=== PATIENT | male | born 1990 | race American Indian/Alaskan Native ===

== ENCOUNTER 2017-06-08 07:13 | Emergency (ER) | payer SELFPAY ==
[2017-06-08 07:53] LABS: Basophils % (Auto) 0.3 % (0.0-1.8); Eosinophils % (Auto) 0.1 % (0.0-4.3); Lymphocytes # (Auto) 1.1 K/mm3 (1.2-5.4); Lymphocytes % (Auto) 8.1 % (13.4-35.0); Mean Corpuscular HGB Conc 33 % (32-34); Mean Corpuscular Hemoglobin 30 pg (28-32); Mean Corpuscular Volume 90 fl (84-94); Monocytes # (Auto) 1.3 K/mm3 (0.0-0.8); Monocytes % (Auto) 9.8 % (0.0-7.3); Platelet Count 261 K/mm3 (140-440); Red Blood Count 5.67 M/mm3 (3.65-5.03); Red Cell Distribution Width 13.8 % (13.2-15.2)
[2017-06-08] MEDS ORDERED: NACL 0.9% 1000 ML 1,000 ML IV ONE ×2 (08:05→09:43)
[2017-06-08] MEDS ORDERED: ZOFRAN IV ONE ×2 (08:05→09:43)
--- NOTE | 2017-06-08 08:18 | Emergency Department Report ---
ED General Adult HPI - General Chief complaint: Nausea/Vomiting/Diarrhea Stated complaint: FLU SX Time Seen by Provider: 06/08/17 08:05 Source: patient Mode of arrival: Ambulatory Limitations: No Limitations - History of Present Illness Initial comments: Patient states he is recently moved to [place]. He denies any sick contacts or unusual diet. He's been having diarrhea since Sunday. He has not seen any blood. He complains of occasional abdominal cramping which has resolved now. He does not report fever or chills. He has vomited and has some mild persistent nausea. His by mouth intake has been diminished over the last 24 hours. He states he's been having diarrhea as frequently as every hour. The patient denies any previous surgery or past medical history. He is not on any routine medications. He's been on no recent antibiotics. -: Gradual, days(s) Location: abdomen Radiation: non-radiation Quality: other Consistency: now resolved Improves with: none Worsens with: none Associated Symptoms: nausea/vomiting (and diarrhea) Treatments Prior to Arrival: none - Related Data Previous Rx's Medication Instructions Recorded Last Taken Type Diphenoxylate/Atropine [Lomotil] 1 tab PO Q8H PRN #7 tablet 06/08/17 Unknown Rx Lansoprazole [Prevacid] 15 mg PO BID #30 cap 06/08/17 Unknown Rx Ondansetron [Zofran Odt] 4 mg PO Q6H #7 tab.rapdis 06/08/17 Unknown Rx Allergies Allergy/AdvReac Type Severity Reaction Status Date / Time No Known Allergies Allergy Unverified 06/08/17 07:23 ED Review of Systems ROS: Stated complaint: FLU SX Other details as noted in HPI Constitutional: denies: chills, fever Eyes: denies: eye pain, eye discharge, vision change ENT: denies: ear pain, throat pain Respiratory: denies: cough, shortness of breath, wheezing Cardiovascular: denies: chest pain, palpitations Endocrine: no symptoms reported Gastrointestinal: as per HPI, nausea, vomiting, diarrhea Genitourinary: denies: urgency, dysuria Musculoskeletal: denies: back pain, joint swelling, arthralgia Skin: denies: rash, lesions Neurological: denies: headache, weakness, paresthesias Psychiatric: denies: anxiety, depression Hematological/Lymphatic: denies: easy bleeding, easy bruising ED Past Medical Hx - Past Medical History Previous Medical History?: No - Surgical History Hx Appendectomy: Yes - Social History Smoking Status: Current Some Day Smoker - Medications Home Medications: Home Medications Medication Instructions Recorded Confirmed Last Taken Type Diphenoxylate/Atropine [Lomotil] 1 tab PO Q8H PRN #7 tablet 06/08/17 Unknown Rx Lansoprazole [Prevacid] 15 mg PO BID #30 cap 06/08/17 Unknown Rx Ondansetron [Zofran Odt] 4 mg PO Q6H #7 tab.rapdis 06/08/17 Unknown Rx ED Physical Exam - General Limitations: No Limitations General appearance: alert, in no apparent distress - Head Head exam: Present: atraumatic, normocephalic - Eye Eye exam: Present: normal appearance. Absent: scleral icterus - ENT ENT exam: Present: mucous membranes moist - Neck Neck exam: Present: normal inspection. Absent: tenderness, meningismus - Respiratory Respiratory exam: Present: normal lung sounds bilaterally. Absent: respiratory distress - Cardiovascular Cardiovascular Exam: Present: regular rate, normal rhythm. Absent: systolic murmur, diastolic murmur, rubs, gallop - GI/Abdominal GI/Abdominal exam: Present: soft, normal bowel sounds. Absent: distended, tenderness, guarding, rebound, rigid, organomegaly, mass, bruit, pulsatile mass , hernia - Rectal Rectal exam: Present: deferred - Extremities Exam Extremities exam: Present: normal inspection - Back Exam Back exam: Present: normal inspection - Neurological Exam Neurological exam: Present: alert, oriented X3, CN II-XII intact. Absent: motor sensory deficit - Psychiatric Psychiatric exam: Present: normal affect, normal mood - Skin Skin exam: Present: warm, dry, intact, normal color. Absent: rash ED Course Vital Signs 06/08/17 06/08/17 06/08/17 07:23 07:34 07:45 Temperature 98.9 F Pulse Rate 105 H Respiratory 18 Rate Blood Pressure 132/75 130/83 O2 Sat by Pulse 99 100 98 Oximetry - Reevaluation(s) Reevaluation #1: Patient's hydration status improving. We'll give some more fluid. After completion he is appropriate for outpatient follow-up. 06/08/17 09:44 ED Medical Decision Making - Lab Data Result diagrams: 06/08/17 07:45 06/08/17 08:21 Laboratory Results - last 24 hr 06/08/17 06/08/17 07:45 08:21 WBC 13.1 H RBC 5.67 H Hgb 17.0 H Hct 51.0 H MCV 90 MCH 30 MCHC 33 RDW 13.8 Plt Count 261 Lymph % (Auto) 8.1 L [place] % (Auto) 9.8 H Eos % (Auto) 0.1 Baso % (Auto) 0.3 Lymph # 1.1 L [place] # 1.3 H Eos # 0.0 Baso # 0.0 Seg Neutrophils % 81.7 H Seg Neutrophils # 10.7 H Sodium 138 Potassium 4.6 Chloride 98.0 Carbon Dioxide 23 Anion Gap 22 BUN 17 Creatinine 1.3 Estimated GFR > 60 BUN/Creatinine Ratio 13 Glucose 120 H Calcium 9.6 Total Bilirubin 0.40 AST 14 ALT 19 Alkaline Phosphatase 76 Total Protein 7.6 Albumin 4.2 Albumin/Globulin Ratio 1.2 Critical care attestation.: If time is entered above; I have spent that time in minutes in the direct care of this critically ill patient, excluding procedure time. ED Disposition Clinical Impression: Volume depletion Diarrhea Qualifiers: Diarrhea type: unspecified type Qualified Code(s): R19.7 - Diarrhea, unspecified Disposition: DC-01 TO HOME OR SELFCARE Is pt being admited?: No Does the pt Need Aspirin: No Condition: Stable Instructions: Dehydration (ED), Acute Diarrhea (ED) Additional Instructions: Fluids and advance as tolerated. Follow-up at [facility] or your choice of primary care providers. Rx as directed return any acute change or problems. Prescriptions: Diphenoxylate/Atropine [Lomotil] 1 tab PO Q8H PRN #7 tablet PRN Reason: Diarrhea Lansoprazole [Prevacid] 15 mg PO BID #30 cap Ondansetron [Zofran Odt] 4 mg PO Q6H #7 tab.rapdis Referrals: PRIMARY CARE, [Primary Care Provider] - 3-5 Days [facility] [Provider Group] - 2-3 Days Time of Disposition: 09:48
[2017-06-08 08:50] LABS: Alanine Aminotransferase 19 units/L (7-56); Albumin 4.2 g/dL (3.9-5); BUN/Creatinine Ratio 13; Blood Urea Nitrogen 17 mg/dL (9-20); Calcium 9.6 mg/dL (8.4-10.2); Hemolysis Index 8
[2017-06-08] MEDS ORDERED: PEPCID IV ONE (09:44)
[2017-06-08 11:03] VITALS: BP 112/50
== END 2017-06-08 11:10 | disposition home or self-care (01) ==
LOC: ED 07:13
DX: E86.9 Volume depletion, unspecified (principal); Z90.49 Acquired absence of other specified parts of digestive tract; F17.200 Nicotine dependence, unspecified, uncomplicated
CPT/HCPCS: 36415; 80053; 85025; 96361; 96374; 96375; 96376; 99283; J2405; J7030

== ENCOUNTER 2019-07-19 22:57 | Emergency (ER) | payer SELFPAY ==
[2019-07-20 00:40] LABS: Basophils % (Auto) 0.2 % (0.0-1.8); Eosinophils # (Auto) 0.1 K/mm3 (0.0-0.4); Eosinophils % (Auto) 0.4 % (0.0-4.3); Hematocrit 48.2 % (35.5-45.6); Hemoglobin 16.7 gm/dl (11.8-15.2); Lymphocytes % (Auto) 14.4 % (13.4-35.0); Mean Corpuscular HGB Conc 35 % (32-34); Mean Corpuscular Volume 92 fl (84-94); Monocytes # (Auto) 1.1 K/mm3 (0.0-0.8); Monocytes % (Auto) 8.1 % (0.0-7.3); Platelet Count 319 K/mm3 (140-440); Red Blood Count 5.27 M/mm3 (3.65-5.03); Red Cell Distribution Width 13.8 % (13.2-15.2)
[2019-07-20 00:47] VITALS: BP 134/84
[2019-07-20] MEDS ORDERED: KETOROLAC 30 MG/1 ML INJ IV ONE (00:53)
[2019-07-20] MEDS ORDERED: ONDANSETRON 4 MG/2 ML INJ IV ONE ×2 (00:53→03:51)
[2019-07-20] MEDS ORDERED: SODIUM CHLORIDE 0.9% 1000 ML 1,000 ML IV ONE ×2 (00:53→02:49)
[2019-07-20 01:03] LABS: Alanine Aminotransferase 12 units/L (7-56); Albumin 5.3 g/dL (3.9-5); BUN/Creatinine Ratio 19; Blood Urea Nitrogen 26 mg/dL (9-20); Calcium 10.4 mg/dL (8.4-10.2); Hemolysis Index 5
[2019-07-20 01:04] LABS: INR 1.08 (0.87-1.13)
[2019-07-20 01:05] LABS: Partial Thromboplastin Time 28.2 Sec. (24.2-36.6)
--- NOTE | 2019-07-20 01:44 | XRay Report ---
CHEST 2 VIEWS 0117 INDICATION / CLINICAL INFORMATION: pleuritc right rib pain COMPARISON: None available. FINDINGS: SUPPORT DEVICES: None. HEART / MEDIASTINUM: No significant abnormality. LUNGS / PLEURA: Less than full degree of inspiration is seen. No pleural effusions are noted. No area s of consolidation are seen. No pneumothorax. ADDITIONAL FINDINGS: No significant additional findings. IMPRESSION: No significant acute abnormality Signer Name: Zander Causey MD Signed: 07/20/2019 1:40 AM Workstation Name: [id number]
[2019-07-20] MEDS ORDERED: cefTRIAXone/NS 1 GM/50 ML 1 GM/50 ML BAG IV ONE ×2 (02:00→02:49)
[2019-07-20] MEDS ORDERED: AZITHROMYCIN 250 MG TAB PO ONE ×2 (02:00→02:49)
[2019-07-20] MEDS ORDERED: FLUCONAZOLE 100 MG TAB PO ONE (02:01)
[2019-07-20 02:09] LABS: Color,Urine TNR (Yellow)
[2019-07-20 02:10] LABS: Bilirubin,Urine TNR (Negative); Blood,Urine TNR (Negative); PH,Urine TNR (5.0-7.0); Protein,Urine TNR mg/dL (Negative); Urobilinogen,Urine TNR mg/dL (<2.0)
--- NOTE | 2019-07-20 02:10 | Cat Scan Report ---
CT ABDOMEN AND PELVIS WITHOUT CONTRAST INDICATION: right side pain, urinary symptoms CONTRAST: Without IV COMPARISON: None available. All CT scans at this location are performed using CT dose reduction for ALARA by means of automated e xposure control. FINDINGS: Lung bases are clear. No pneumoperitoneum is seen. No significant abdominal wall herniation is noted. No free fluid is seen. No lymphadenopathy is noted. See no abnormalities of the liver, spl een, pancreas, gallbladder, bile ducts, adrenals, or kidneys. No urinary tract calculi or evidence of obstruction are seen. No evidence of bowel obstruction is noted. Appendix is not visualized. No foca l inflammatory changes are seen. IMPRESSION: No acute abnormalities are seen Signer Name: Zander Causey MD Signed: 07/20/2019 2:05 AM Workstation Name: [id number]
[2019-07-20 02:11] LABS: Ictotest,Urine TNR (Negative); RBC,Urine TNR /HPF (0.0-6.0); WBC,Urine TNR /HPF (0.0-6.0)
[2019-07-20 02:12] LABS: Amorphous Crystals,Urine TNR; Calcium Carbonate Crystals,Ur TNR; Calcium Oxalate Crystals,Urine TNR; Calcium Phosphate Crystals,Ur TNR; Cystine Crystals,Urine TNR; Renal Epithelial Cells,Urine TNR /LPF; Triple Phosphate Crystal,Urine TNR
[2019-07-20 02:13] LABS: Bacteria,Urine TNR /HPF (Negative); Broad Casts,Urine TNR /LPF; Epithelial Casts,Urine TNR /HPF; Fatty Casts,Urine TNR /LPF; Granular Casts,Urine TNR /LPF; Hyaline Casts,Urine TNR /LPF; Mucus,Urine TNR /HPF; Other Casts,Urine TNR /LPF; Other Crystals,Urine TNR; Red Blood Cell Casts,Urine TNR /LPF; Sperm,Urine TNR /HPF (NP); Trichomonas,Urine TNR /HPF; Tyrosine Crystal,Urine TNR; White Blood Cell Casts,Urine TNR /LPF
[2019-07-20 02:35] LABS: Bacteria,Urine 1+ /HPF (Negative); Bilirubin,Urine NEG (Negative); Blood,Urine LG (Negative); Color,Urine Yellow (Yellow); Mucus,Urine 2+ /HPF; Urobilinogen,Urine < 2.0 mg/dL (<2.0)
--- NOTE | 2019-07-20 02:35 | Emergency Department Report ---
ED Male HPI - General Chief complaint: Abdominal Pain Stated complaint: FLANK PAIN Time Seen by Provider: 07/20/19 00:36 Source: patient, EMS Mode of arrival: Wheelchair Limitations: No Limitations - History of Present Illness Initial comments: 28-year-old male presents to the hospital complaining of difficulty urinating x1 week. Patient states he feels like he has to go to the bathroom but only a small amount comes out at the time 4 days ago patient had clear urine output with specks of blood without any recurrent hematuria. Since this morning he has had right-sided lower pleuritic chest pain rated 10/10 in intensity. Pain is worse with inspiration but not worse with movement or palpation. He had one episode of nausea and vomiting this a.m. denies hematemesis, melena, hematochezia. Patient denies cough or fever. He denies penile discharge, penile pain, or testicular pain - Related Data Previous Rx's Medication Instructions Recorded Last Taken Type Diphenoxylate/Atropine [Lomotil] 1 tab PO Q8H PRN #7 tablet 06/08/17 Unknown Rx Lansoprazole [Prevacid] 15 mg PO BID #30 cap 06/08/17 Unknown Rx Ondansetron [Zofran Odt] 4 mg PO Q6H #7 tab.rapdis 06/08/17 Unknown Rx Ibuprofen [Motrin] 800 mg PO Q8HR PRN #20 tablet 07/20/19 Unknown Rx Ondansetron [Zofran Odt] 4 mg PO Q8HR PRN #20 tab.rapdis 07/20/19 Unknown Rx Sulfamethoxazole/Trimethoprim 1 each PO BID #10 tablet 07/20/19 Unknown Rx [Bactrim DS TAB] traMADoL [Ultram 50 MG tab] 50 mg PO Q6HR PRN #10 tablet 07/20/19 Unknown Rx Allergies Allergy/AdvReac Type Severity Reaction Status Date / Time No Known Allergies Allergy Verified 07/20/19 02:10 ED Review of Systems ROS: Stated complaint: FLANK PAIN Other details as noted in HPI Comment: All other systems reviewed and negative ED Past Medical Hx - Past Medical History Previous Medical History?: No - Surgical History Past Surgical History?: Yes Hx Appendectomy: Yes - Social History Smoking Status: Never Smoker - Medications Home Medications: Home Medications Medication Instructions Recorded Confirmed Last Taken Type Diphenoxylate/Atropine [Lomotil] 1 tab PO Q8H PRN #7 tablet 06/08/17 Unknown Rx Lansoprazole [Prevacid] 15 mg PO BID #30 cap 06/08/17 Unknown Rx Ondansetron [Zofran Odt] 4 mg PO Q6H #7 tab.rapdis 06/08/17 Unknown Rx Ibuprofen [Motrin] 800 mg PO Q8HR PRN #20 tablet 07/20/19 Unknown Rx Ondansetron [Zofran Odt] 4 mg PO Q8HR PRN #20 tab.rapdis 07/20/19 Unknown Rx Sulfamethoxazole/Trimethoprim 1 each PO BID #10 tablet 07/20/19 Unknown Rx [Bactrim DS TAB] traMADoL [Ultram 50 MG tab] 50 mg PO Q6HR PRN #10 tablet 07/20/19 Unknown Rx ED Physical Exam - General Limitations: No Limitations - Other Other exam information: General: No acute distress Head: Atraumatic Eyes: normal appearance ENT: Moist mucous membranes Neck: Normal appearance, no midline tenderness Chest: Clear to auscultation bilaterally, chest wall nontender CV: Regular rate and rhythm Abdomen: Soft, normal bowel sounds, nontender, nondistended, no rebound or guarding Back: Normal inspection Extremity: Normal inspection, full range of motion, no CVA tenderness or flank tenderness Neuro: Alert O x 3, no facial asymmetry, speech clear, no gross motor sensory deficit Psych: Appropriate behavior Skin: No rash ED Course Vital Signs 07/19/19 07/20/19 23:57 01:17 Temperature 98.3 F Pulse Rate 105 H Respiratory 18 16 Rate Blood Pressure 134/84 O2 Sat by Pulse 98 100 Oximetry ED Medical Decision Making - Lab Data Result diagrams: 07/20/19 00:18 07/20/19 00:18 Lab Results 07/20/19 07/20/19 07/20/19 Range/Units 00:15 00:18 00:18 WBC 13.7 H (4.5-11.0) K/mm3 RBC 5.27 H (3.65-5.03) M/mm3 Hgb 16.7 H (11.8-15.2) gm/dl Hct 48.2 H (35.5-45.6) % MCV 92 (84-94) fl MCH 32 (28-32) pg MCHC 35 H (32-34) % RDW 13.8 (13.2-15.2) % Plt Count 319 (140-440) K/mm3 Lymph % (Auto) 14.4 (13.4-35.0) % Bonner % (Auto) 8.1 H (0.0-7.3) % Eos % (Auto) 0.4 (0.0-4.3) % Baso % (Auto) 0.2 (0.0-1.8) % Lymph # 2.0 (1.2-5.4) K/mm3 Bonner # 1.1 H (0.0-0.8) K/mm3 Eos # 0.1 (0.0-0.4) K/mm3 Baso # 0.0 (0.0-0.1) K/mm3 Seg Neutrophils % 76.9 H (40.0-70.0) % Seg Neutrophils # 10.5 H (1.8-7.7) K/mm3 PT (12.2-14.9) Sec. INR (0.87-1.13) APTT (24.2-36.6) Sec. D-Dimer (0-234) ng/mlDDU Sodium 139 (137-145) mmol/L Potassium 4.5 (3.6-5.0) mmol/L Chloride 96.6 L (98-107) mmol/L Carbon Dioxide 18 L (22-30) mmol/L Anion Gap 29 mmol/L BUN 26 H (9-20) mg/dL Creatinine 1.4 (0.8-1.5) mg/dL Estimated GFR > 60 ml/min BUN/Creatinine Ratio 19 % Glucose 103 H (75-100) mg/dL Calcium 10.4 H (8.4-10.2) mg/dL Total Bilirubin 0.70 (0.1-1.2) mg/dL AST 15 (5-40) units/L ALT 12 (7-56) units/L Alkaline Phosphatase 117 (35-129) units/L Total Protein 9.5 H (6.3-8.2) g/dL Albumin 5.3 H (3.9-5) g/dL Albumin/Globulin Ratio 1.3 % Lipase 25 (13-60) units/L Urine Color TNR Urine Turbidity TNR Urine pH TNR Ur Specific [place] TNR Urine Protein TNR Urine Glucose (UA) TNR Urine Ketones TNR Urine Blood TNR Urine Nitrite TNR Ur Reducing Substances TNR Urine Bilirubin TNR Urine Ictotest TNR Urine Urobilinogen TNR Ur Leukocyte Esterase TNR Urine WBC (Auto) TNR Urine RBC (Auto) TNR U Epithel Cells (Auto) TNR Urine Bacteria (Auto) TNR Urine WBC Clumps TNR Ur Transition Epith Cell TNR Ur Renal Epithelial Cell TNR Calcium Carbonate Cryst TNR Calcium Phosphate Cryst TNR Calcium Oxalate Crystal TNR Cystine Crystals TNR Uric Acid Crystals TNR Triple Phos Crystals TNR Tyrosine Crystals TNR Other Crystals TNR Amorphous Crystals TNR Epithelial Casts TNR Fatty Casts TNR Hyaline Casts TNR Granular Casts TNR Waxy Casts TNR Broad Casts TNR RBC Casts TNR WBC Casts TNR Other Casts TNR Urine Mucus TNR Urine Trichomonas TNR Ur Yeast w Hyphae TNR Urine Yeast (Budding) TNR Urine Sperm TNR 07/20/19 07/20/19 07/20/19 Range/Units 00:39 Unknown Unknown WBC (4.5-11.0) K/mm3 RBC (3.65-5.03) M/mm3 Hgb (11.8-15.2) gm/dl Hct (35.5-45.6) % MCV (84-94) fl MCH (28-32) pg MCHC (32-34) % RDW (13.2-15.2) % Plt Count (140-440) K/mm3 Lymph % (Auto) (13.4-35.0) % Bonner % (Auto) (0.0-7.3) % Eos % (Auto) (0.0-4.3) % Baso % (Auto) (0.0-1.8) % Lymph # (1.2-5.4) K/mm3 Bonner # (0.0-0.8) K/mm3 Eos # (0.0-0.4) K/mm3 Baso # (0.0-0.1) K/mm3 Seg Neutrophils % (40.0-70.0) % Seg Neutrophils # (1.8-7.7) K/mm3 PT 14.1 (12.2-14.9) Sec. INR 1.08 (0.87-1.13) APTT 28.2 (24.2-36.6) Sec. D-Dimer 151.4 (0-234) ng/mlDDU Sodium (137-145) mmol/L Potassium (3.6-5.0) mmol/L Chloride (98-107) mmol/L Carbon Dioxide (22-30) mmol/L Anion Gap mmol/L BUN (9-20) mg/dL Creatinine (0.8-1.5) mg/dL Estimated GFR ml/min BUN/Creatinine Ratio % Glucose (75-100) mg/dL Calcium (8.4-10.2) mg/dL Total Bilirubin (0.1-1.2) mg/dL AST (5-40) units/L ALT (7-56) units/L Alkaline Phosphatase (35-129) units/L Total Protein (6.3-8.2) g/dL Albumin (3.9-5) g/dL Albumin/Globulin Ratio % Lipase (13-60) units/L Urine Color Yellow Urine Turbidity Cloudy Urine pH 5.0 Ur Specific [place] 1.019 Urine Protein 100 mg/dl Urine Glucose (UA) Neg Urine Ketones 80 Urine Blood Lg Urine Nitrite Neg Ur Reducing Substances Urine Bilirubin Neg Urine Ictotest Urine Urobilinogen < 2.0 Ur Leukocyte Esterase Lg Urine WBC (Auto) > 182.0 H Urine RBC (Auto) 82.0 U Epithel Cells (Auto) 6.0 Urine Bacteria (Auto) 1+ Urine WBC Clumps 2+ Ur Transition Epith Cell Ur Renal Epithelial Cell Calcium Carbonate Cryst Calcium Phosphate Cryst Calcium Oxalate Crystal Cystine Crystals Uric Acid Crystals Triple Phos Crystals Tyrosine Crystals Other Crystals Amorphous Crystals Epithelial Casts Fatty Casts Hyaline Casts Granular Casts Waxy Casts Broad Casts RBC Casts WBC Casts Other Casts Urine Mucus 2+ Urine Trichomonas Ur Yeast w Hyphae Urine Yeast (Budding) Urine Sperm gc/chl pending - Radiology Data Radiology results: report reviewed CT ABDOMEN AND PELVIS WITHOUT CONTRAST INDICATION: right side pain, urinary symptoms CONTRAST: Without IV COMPARISON: None available. All CT scans at this location are performed using CT dose reduction for ALARA by means of automated exposure control. FINDINGS: Lung bases are clear. No pneumoperitoneum is seen. No significant abdominal wall herniation is noted. No free fluid is seen. No lymphadenopathy is noted. See no abnormalities of the liver, spleen, pancreas, gallbladder, bile ducts, adrenals, or kidneys. No urinary tract calculi or evidence of obstruction are seen. No evidence of bowel obstruction is noted. Appendix is not visualized. No focal inflammatory changes are seen. IMPRESSION: No acute abnormalities are seen CHEST 2 VIEWS 0117 INDICATION / CLINICAL INFORMATION: pleuritc right rib pain COMPARISON: None available. FINDINGS: SUPPORT DEVICES: None. HEART / MEDIASTINUM: No significant abnormality. LUNGS / PLEURA: Less than full degree of inspiration is seen. No pleural effusions are noted. No areas of consolidat ion are seen. No pneumothorax. ADDITIONAL FINDINGS: No significant additional findings. IMPRESSION: No significant acute abnormality - Medical Decision Making pt feels better with ed tx of Toradol, Zofran 2 L of normal saline provided for dehydration Rocephin azithromycin provided for urethritis given positive urine findings for UTI Gonorrhea chlamydia pending Patient with reported pleuritic right-sided rib pain which may be due to infection of kidney. No CT evidence of pyelonephritis, no CVA tenderness, however, patient also has a negative chest x-ray and a negative d-dimer with a low pretest probability for PE Patient did develop additional nausea vomiting after p.o. meds and required additional Reglan, Benadryl, and Zofran for nausea - Differential Diagnosis PE, pleuritic chest pain, UTI, urethritis, renal colic, biliary colic Critical Care Time: No Critical care attestation.: If time is entered above; I have spent that time in minutes in the direct care of this critically ill patient, excluding procedure time. ED Disposition Clinical Impression: Urethritis, UTI (urinary tract infection), Pleuritic chest pain Disposition: TO HOME OR SELFCARE Is pt being admited?: No Does the pt Need Aspirin: No Condition: Stable Instructions: Pleurisy (ED), Nonspecific Urethritis in Men (ED), Urinary Tract Infection in Men (ED) Additional Instructions: Take the medication as prescribed. In your age group urethritis is likely secondary to gonorrhea chlamydia infection. You test is pending. Refer to your paperwork regarding how to obtain your results. Your sexual partners will also need treatment for possible gonorrhea and chlamydia if cultures are positive. Follow-up your doctor or doctor/clinic provided. Return if symptoms worsen as indicated by your discharge instructions. Prescriptions: Sulfamethoxazole/Trimethoprim [Bactrim DS TAB] 1 each PO BID #10 tablet Ibuprofen [Motrin] 800 mg PO Q8HR PRN #20 tablet PRN Reason: Pain, Moderate (4-6) traMADoL [Ultram 50 MG tab] 50 mg PO Q6HR PRN #10 tablet PRN Reason: Pain Ondansetron [Zofran Odt] 4 mg PO Q8HR PRN #20 tab.rapdis PRN Reason: Nausea And Vomiting Referrals: ENOCH ZABALA MD [Primary Care Provider] - 3-5 Days ROCHELLE LAWSON MD [Staff Physician] - 3-5 Days ISIDRO KHAN MD [Staff Physician] - 3-5 Days Forms: STI Treatment and Prevention
[2019-07-20 02:36] LABS: WBC,Urine > 182.0 /HPF (0.0-6.0)
[2019-07-20] MEDS ORDERED: diphenhydrAMINE 50 MG/ML VIAL IV ONE (04:34)
[2019-07-20] MEDS ORDERED: METOCLOPRAMIDE 10 MG/2 ML INJ IV ONE (04:34)
== END 2019-07-20 04:53 | disposition home or self-care (01) ==
LOC: ED 22:57
DX: N39.0 Urinary tract infection, site not specified (principal); R07.89 Other chest pain; N34.2 Other urethritis; Z90.49 Acquired absence of other specified parts of digestive tract; Z79.899 Other long term (current) drug therapy
CPT/HCPCS: 36415; 71046; 74176; 80053; 81001; 83690; 85025; 85379; 85610; 85730; 87086; 87591; 96361; 96365; 96375; 96376; 99285; J0696; J1200; J1885; J2405; J2765; J7030